=== PATIENT | female | born 1990 | race Caucasian/White ===

== ENCOUNTER 2017-05-25 17:23 | Emergency (ER) | payer OTHER ==
[2017-05-25 17:36] VITALS: BP 90/52
--- NOTE | 2017-05-25 17:38 | UC ---
Ear Complaint HPI - HPI Summary HPI Summary: 27 year old female presents with complains of bilateral ear pain and cerumen impaction. - History of Current Complaint Chief Complaint: UCUpperExtremity Stated Complaint: EAR ACHE Time Seen by Provider: 05/25/17 17:37 Hx Obtained From: Patient Hx Last Menstrual Period: NOW Onset/Duration: Sudden Onset Severity Initially: Moderate Severity Currently: Moderate Pain Scale Used: 0-10 Numeric - 5 - Allergies/Home Medications Allergies/Adverse Reactions: Allergies Allergy/AdvReac Type Severity Reaction Status Date / Time Sulfa Antibiotics Allergy Rash Verified 05/25/17 17:36 Home Medications: Home Medications Control Pill* 1 tab PO DAILY 05/25/17 [History] Multiple Vitamins W/ Minerals [Multivitamin Adults] 1 tab PO DAILY 05/25/17 [ History Confirmed 05/25/17] Otc Allergy Med* 1 tab PO DAILY 05/25/17 [History Confirmed 05/25/17] PMH/Surg Hx/FS Hx/Imm Hx Previously Healthy: Yes - Surgical History Surgical History: Yes Surgery Procedure, Year, and Place: urethra tube cyst-2016 - Family History Known Family History: Positive: Hypertension, Diabetes, Respiratory Disease, Seizure Disorder - Social History Alcohol Use: None Substance Use Type: Marijuana Substance Use Comment - Amount & Last Used: marijuana today Smoking Status (MU): Former Smoker Type: Cigarettes Length of Time of Smoking/Using Tobacco: 7 years Have You Smoked in the Last Year: No When Did the Patient Quit Smoking/Using Tobacco: 6 MOS. Review of Systems Constitutional: Negative Skin: Negative Eyes: Negative ENT: Ear Ache Respiratory: Negative Cardiovascular: Negative Gastrointestinal: Negative Genitourinary: Negative Motor: Negative Neurovascular: Negative Musculoskeletal: Negative Neurological: Negative Psychological: Negative All Other Systems Reviewed And Are Negative: Yes Physical Exam Triage Information Reviewed: Yes Vital Signs: Initial Vital Signs Temp 36.6 C 05/25/17 17:32 Pulse 66 05/25/17 17:32 Resp 16 05/25/17 17:32 BP 90/52 05/25/17 17:32 Pulse Ox 99 05/25/17 17:32 Vital Signs Reviewed: Yes Eye Exam: Normal ENT: Positive: Other: - bilateral cerumen impaction ear pain Dental Exam: Normal Neck exam: Normal Neck: Positive: 1 Respiratory Exam: Normal Cardiovascular Exam: Normal Abdominal Exam: Normal Musculoskeletal Exam: Normal Neurological Exam: Normal Psychological Exam: Normal Skin Exam: Normal Ear Complaint Course/Dx - Differential Dx/Diagnosis Provider Diagnoses: bilateral cerumen impaction. ear pain Discharge - Discharge Plan Condition: Stable Disposition: HOME Prescriptions: Methylprednisolone [Medrol Dosepak 4 MG*] 4 mg PO .SEE ESTEPHANIA INSTRUCTION #21 tab Neomyc/Polym/HC 1% OTIC SUSP* [Cortisporin Otic Susp 1%*] 4 drop BOTH EARS QID # 1 btl Patient Education Materials: Earache (ED) Referrals: Laxmi Mcadams NP [Primary Care Provider] -
== END 2017-05-25 18:14 | disposition home or self-care (01) ==
LOC: UCEAST 17:23
DX: H61.23 Impacted cerumen, bilateral (principal); H92.03 Otalgia, bilateral; Z79.3 Long term (current) use of hormonal contraceptives; Z88.2 Allergy status to sulfonamides; F12.90 Cannabis use, unspecified, uncomplicated; Z87.891 Personal history of nicotine dependence
CPT/HCPCS: 99213; G0463

== ENCOUNTER 2017-10-06 12:24 | Emergency (ER) | payer OTHER ==
[2017-10-06 12:40] VITALS: BP 106/67
--- NOTE | 2017-10-06 12:59 | UC ---
Abdominal Pain Female HPI - HPI Summary HPI Summary: right lower abdominal pain x 1 day no radiation of the pain , pain is sharp, worse with movement, better with rest, no fever, no chills, no n/v/d/c , + dysuria - History of Current Complaint Chief Complaint: UCAbdominalPain Stated Complaint: ABD PAIN Time Seen by Provider: 10/06/17 12:49 Hx Obtained From: Patient Hx Last Menstrual Period: 27 dyas ago ?: No Onset/Duration: Gradual Onset, Lasting Days - 1, Still Present Timing: Constant Severity Initially: Moderate Severity Currently: Moderate Pain Intensity: 4 Location: Discrete At: RLQ Radiates: No Character: Sharp Aggravating Factor(s): Movement Alleviating Factor(s): Nothing Associated Signs and Symptoms: Negative: Diaphoresis, Fever, Cough, Chest Pain, Dizzy, Back Pain, Constipation, Blood in Stool, Urinary Symptoms, Decreased Appetite, Vaginal Bleeding, Vaginal Discharge, Nausea, Vomiting, Diarrhea Allergies/Adverse Reactions: Allergies Allergy/AdvReac Type Severity Reaction Status Date / Time Sulfa (Sulfonamide Allergy Rash Verified 10/06/17 12:42 Antibiotics) Home Medications: Home Medications Multivitamin [Daily Multiple Vitamins] 1 tab PO DAILY 10/06/17 [History Confirmed 10/06/17] Sertraline* [Zoloft*] 50 mg PO DAILY 10/06/17 [History Confirmed 10/06/17] PMH/Surg Hx/FS Hx/Imm Hx Previously Healthy: Yes - Surgical History Surgical History: Yes Surgery Procedure, Year, and Place: urethra tube cyst-2016 - Family History Known Family History: Positive: Hypertension, Diabetes, Respiratory Disease, Seizure Disorder - Social History Alcohol Use: Weekly Alcohol Amount: 1-2 Substance Use Type: Marijuana Substance Use Comment - Amount & Last Used: marijuana today Smoking Status (MU): Former Smoker Type: Cigarettes Length of Time of Smoking/Using Tobacco: 7 years Have You Smoked in the Last Year: No When Did the Patient Quit Smoking/Using Tobacco: 6 MOS. Review of Systems Constitutional: Negative Skin: Negative Eyes: Negative ENT: Negative Respiratory: Negative Cardiovascular: Negative Gastrointestinal: Abdominal Pain Genitourinary: Negative Is Patient Immunocompromised?: No All Other Systems Reviewed And Are Negative: Yes Physical Exam Triage Information Reviewed: Yes Appearance: Well-Appearing, No Pain Distress, Well-Nourished Vital Signs: Initial Vital Signs Temp 99.1 F 10/06/17 12:34 Pulse 71 10/06/17 12:34 Resp 18 10/06/17 12:34 BP 106/67 10/06/17 12:34 Pulse Ox 99 10/06/17 12:34 Vital Signs Reviewed: Yes Eyes: Positive: Conjunctiva Clear ENT: Positive: Normal ENT inspection, Hearing grossly normal, Pharynx normal, Pharyngeal erythema Neck: Positive: Supple, Nontender, No Lymphadenopathy Respiratory: Positive: Chest non-tender, Lungs clear, Normal breath sounds, No respiratory distress Cardiovascular: Positive: RRR, No Murmur, Pulses Normal Abdomen Description: Positive: Soft, Guarding, Other: - RLQ TENDERNESS. Negative: CVA Tenderness (R), CVA Tenderness (L), Distended Bowel Sounds: Positive: Present Musculoskeletal Exam: Normal Skin Exam: Normal Abd Pain Female Course/Dx - Course Course Of Treatment: CONCERN ABOUT ACUTE APPENDICITIS. WILL HAVE THE PT. GO TO [facility] ED - Differential Dx/Diagnosis Provider Diagnoses: RLQ ABDOMINAL PAIN Discharge - Discharge Plan Condition: Good Disposition: TRANS [facility] FAC Patient Education Materials: Acute Abdominal Pain (ED) Referrals: Laxmi Mcadams NP [Primary Care Provider] - Additional Instructions: concern about acute appendicitis please go to [facility] ED for eval and tx
== END 2017-10-06 13:01 | disposition short-term general hospital (02) ==
LOC: UCCORT 12:24
DX: R10.31 Right lower quadrant pain (principal); Z87.891 Personal history of nicotine dependence
CPT/HCPCS: 81003; 99212; G0463

== ENCOUNTER 2017-10-06 23:32 | Emergency (ER) | payer OTHER ==
[2017-10-06 23:39] VITALS: BP 118/70
== END 2017-10-07 01:05 | disposition left against medical advice (07) ==
LOC: ED 23:32
DX: R10.9 Unspecified abdominal pain (principal); Z53.21 Procedure and treatment not carried out due to patient leaving prior to being seen by health care provider

== ENCOUNTER 2018-10-15 16:57 | Emergency (ER) | payer OTHER ==
[2018-10-15 17:30] VITALS: BP 101/57
--- NOTE | 2018-10-15 18:44 | UC ---
General HPI - HPI Summary HPI Summary: RN notes - Sore throat starting Thursday; Thursday night started with post nasal drip; worsensing throat pain. Denies any fever. - History of Current Complaint Chief Complaint: UCRespiratory Stated Complaint: SINUS CONGESTION, COUGH, AND EAR ACHE Time Seen by Provider: 10/15/18 18:43 Hx Obtained From: Patient Hx Last Menstrual Period: 10/08/2018 Pain Intensity: 8 - Allergy/Home Medications Allergies/Adverse Reactions: Allergies Allergy/AdvReac Type Severity Reaction Status Date / Time Sulfa (Sulfonamide Allergy Rash Verified 10/15/18 17:25 Antibiotics) PMH/Surg Hx/FS Hx/Imm Hx - Surgical History Surgical History: Yes Surgery Procedure, Year, and Place: urethra tube cyst-2015 - Family History Known Family History: Positive: Hypertension, Diabetes, Respiratory Disease, Seizure Disorder - Social History Alcohol Use: Weekly Alcohol Amount: 1-2 Substance Use Type: Marijuana Substance Use Comment - Amount & Last Used: marijuana today Smoking Status (MU): Former Smoker Type: Cigarettes Length of Time of Smoking/Using Tobacco: 7 years Have You Smoked in the Last Year: No When Did the Patient Quit Smoking/Using Tobacco: 6 MOS. Physical Exam Vital Signs: Initial Vital Signs Temp 98.3 F 10/15/18 17:26 Pulse 92 10/15/18 17:26 Resp 18 10/15/18 17:26 BP 101/57 10/15/18 17:26 Pulse Ox 100 10/15/18 17:26 Course/Dx - Course Course Of Treatment: STrep negative neg. Will check mono. D/w pt. She is concerned about recently feeling very weak. Has been taking iron suppls. Will check cbc as well. Meanwhile, pt wishes to start azithromycin re sinus / uri issues. F/u PCP encouraged. Questions as posed answered to the best of my ability. Declines work note. - Diagnoses Provider Diagnosis: Pharyngitis Discharge - Sign-Out/Discharge Documenting (check all that apply): Patient Departure All imaging exams completed and their final reports reviewed: No Studies - Discharge Plan Condition: Stable Disposition: HOME Prescriptions: Azithromyxin ESTEPHANIA (NF) [Z-Estephania (Zithromax) 250 mg tabs #6] 2 tab PO .TODAY, THEN 1 DAILY #6 tab Patient Education Materials: Pharyngitis (ED), Weakness (ED) Referrals: Laxmi Mcadams NP [Primary Care Provider] - Additional Instructions: Follow up with your primary care provider next week. Call early next wekk to let her know how you are doing. Seek medical attention in the meantime for any worse or new problems. Blood tests today: CBC Monospot (possible EBV testing) CRP/ ESR Use back up control method during the cycle(s) in which you are taking the antibiotic. - Billing Disposition and Condition Condition: STABLE Disposition: Home
[2018-10-16 10:05] LABS: ABS Basophils 0.1 10^3/ul (0-0.2); ABS Eosinophils 0.1 10^3/ul (0-0.6); ABS Lymphocytes 1.7 10^3/ul (1.0-4.8); ABS Monocytes 0.4 10^3/ul (0-0.8); ABS Neutrophils 4.2 10^3/ul (1.5-7.7); ABS Nucleated RBC 0 10^3/ul; Eosinophil % 1.6 %; Hematocrit 42 % (33-41); Hemoglobin 14.1 g/dL (12.0-16.0); Lymphocyte % 26.9 %; Mean Corpuscular HGB Conc 34 g/dL (31-36); Mean Corpuscular Hemoglobin 30 pg (27-31); Mean Corpuscular Volume 89 fL (80-97); Nucleated Red Blood Cells % 0.2; Platelet Count 214 10^3/uL (150-450); Red Blood Count 4.73 10^6 /uL (3.70-4.87); Red Cell Distribution Width 13 % (10.5-15); White Blood Count 6.5 10^3/uL (3.5-10.8)
--- NOTE | 2018-10-16 15:25 | UC ---
- Progress Note Progress Note: 10/16/2018 CBC:WNL , ESR still pending. Monospot: negative CRP: 3.56 WNL. No change Mary Haskins PA-C Course/Dx - Diagnoses Provider Diagnoses: Pharyngitis Discharge - Sign-Out/Discharge Documenting (check all that apply): Patient Departure - D/C home All imaging exams completed and their final reports reviewed: No Studies - Discharge Plan Condition: Stable Disposition: HOME Prescriptions: Azithromyxin ESTEPHANIA (NF) [Z-Estephania (Zithromax) 250 mg tabs #6] 2 tab PO .TODAY, THEN 1 DAILY #6 tab Patient Education Materials: Pharyngitis (ED), Weakness (ED) Referrals: Laxmi Mcadams NP [Primary Care Provider] - Additional Instructions: Follow up with your primary care provider next week. Call early next wekk to let her know how you are doing. Seek medical attention in the meantime for any worse or new problems. Blood tests today: CBC Monospot (possible EBV testing) CRP/ ESR Use back up control method during the cycle(s) in which you are taking the antibiotic. - Billing Disposition and Condition Condition: STABLE Disposition: Home
[2018-10-16 23:04] LABS: Erythrocyte Sed Rate 5 mm/Hr (0-20)
[2018-10-18 14:59] LABS: EBV Capsid Ag IgG Ab Positive (Negative); EBV Capsid Ag IgM Ab Negative (Negative); Epstein-Barr Nuclear Antigen Positive (Negative)
== END 2018-10-15 19:45 | disposition home or self-care (01) ==
LOC: UCEAST 16:57
DX: J02.9 Acute pharyngitis, unspecified (principal); Z88.2 Allergy status to sulfonamides; Z87.891 Personal history of nicotine dependence
CPT/HCPCS: 36415; 85025; 85652; 86140; 86308; 86664; 86665; 87651; 99212; G0463

== ENCOUNTER 2019-04-03 14:20 | Emergency (ER) | payer OTHER ==
--- OUTSIDE RECORDS SUMMARY | 2019-04-03 14:26 | XMS REPORT | Continuity of Care Document ---
:1990 External Reference #:[id number] Author Name Aayush Porras, Address [address] [place] [id number] Care Team Providers Name Role Phone Laxmi Mcadams FNP Care Team Information Associate Director Of Development [phone] Problems Description No Information Available Social History Type Date Description Comments Sex Unknown Tobacco Use Start: Unknown End: Unknown Patient is a former smoker Smoking Status Reviewed: 12/06/18 Patient is a former smoker Allergies, Adverse Reactions, Alerts Active Allergies Reaction Severity Comments Date Sulfa 12/06/2018 Medications Active Medications SIG Qnty Indications Ordering Provider Date Sofosbuvir-Velpatasvi 1 tablet PO 28tabs Aayush PorrasDO 01/05/2019 r daily 400-100mg Tablets Lillow Take 1 Tablet By Unknown 0.15-30mg-mcg Mouth Every Day Tablets Immunizations Description No Information Available Vital Signs Date Vital Result Comment 12/06/2018 1:39pm Height 64 inches 5'4" Weight 130.00 lb BP Systolic 119 mmHg BP Diastolic 73 mmHg Heart Rate 79 /min BMI (Body Mass Index) 22.3 kg/m2 Results Test Date Facility Test Result H/L Range Note Liver Function Panel 02/07/2019 [facility] [place] Protein 8.1 g/dL Normal 6.4- 8.9 Albumin 5.1 g/dL Normal 3.2-5.2 Globulin 3.0 g/dL Normal 2-4 Albumin/Globulin Ratio 1.7 Normal 1-3 Total Bilirubin 0.50 mg/dL Normal 0.2-1.0 Direct Bilirubin 0.10 mg/dL Normal 0.03-0.18 Indirect Bilirubin 0.4 mg/dL Normal 0.3-1.0 Alkaline Phosphatase 52 U/L Normal 34-104 Alt 14 U/L Normal 7-52 Ast 17 U/L Normal 13-39 Laboratory test 02/07/2019 [facility] Hepatitis C Rna Undetected IU/mL Undetected 1 finding Quant Comp Metabolic 12/06/2018 [facility] Sodium 138 mmol/L Normal 135-145 Panel Potassium 4.1 mmol/L Normal 3.5-5.0 Chloride 104 mmol/L Normal 101-111 Co2 Carbon Dioxide 25 mmol/L Normal 22-32 Anion Gap 9 mmol/L Normal 2-11 Glucose 102 mg/dL High 70-100 Blood Urea Nitrogen 16 mg/dL Normal 6-24 Creatinine 0.64 mg/dL Normal 0.51-0.95 BUN/Creatinine Ratio 25.0 High 8-20 Calcium 9.7 mg/dL Normal 8.6-10.3 Total Protein 7.4 g/dL Normal 6.4-8.9 Albumin 4.6 g/dL Normal 3.2-5.2 Globulin 2.8 g/dL Normal 2-4 Albumin/Globulin Ratio 1.6 Normal 1-3 Total Bilirubin 0.50 mg/dL Normal 0.2-1.0 Alkaline Phosphatase 50 U/L Normal 34-104 Alt 79 U/L High 7-52 Ast 48 U/L High 13-39 Egfr Non- 112.2 >60 Egfr 135.7 >60 2 Laboratory test 12/06/2018 [facility] HCV Genotype 1a Abnormal Undetected 3 finding Resolution, S Hepatitis B Vasquez AB 12/06/2018 [facility] Hepatitis B Surface Immune Immune Titer AB Hep B Surf AB Level 62.17 mIU/mL >12 Fibro Test-Actitest, Serum 12/06/2018 [facility] FibroTest Score 0.04 FibroTest Stage F0 FibroTest Interpretation no fibrosis 4 ActiTest Score 0.44 ActiTest Grade A1-A2 ActiTest Interpretation minimal activity 5 FibroTest-ActiTest Comment See Comment 6 [employer] Serial Number [id number] Apolipoprotein A1, S 189 mg/dL >=140 Tkloe-1-Pnaelywtockyc, S 188 mg/dL 100 - 280 Haptoglobin, S 134 mg/dL 30 - 200 Alanine Aminotransferase (Alt) 93 U/L Abnormal 7-45 Gamma Glutamyltransferase GGT 25 U/L 5 - 36 Bilirubin, Total, S 0.4 mg/dL <=1.2 7 Drug Abuse W/Confirm, Ur 12/06/2018 [facility] Urine Alcohol Negative mg/dL Cutoff: 10 Urine Amphetamine Negative ng/mL 8 Urine Barbiturates Negative ng/mL 9 Urine Benzodiazepines Negative ng/mL 10 Urine Cocaine Negative ng/mL 11 Urine Methadone Negative ng/mL Negative 12 Urine Opiates Negative ng/mL Negative 13 Urine Phencyclidine Negative ng/mL Cutoff: 25 Urine Tetrahydrocannabinol Presumptive Posi <SEE NOTE> ng/mL Abnormal Cutoff : 50 14 THC Confirmation Urine 12/06/2018 [facility] Urine Carboxy THC Confirm >500.0 ng/ mL 15 Urine THC Interpretation Positive. 16 CBC W/Auto 12/06/2018 [facility] 5.5 3/UL 4.8- 10.8 Differential(!) [address] [facility] [place] [address] Count Ser [phone] Auto CNT RBC Red Blood Count 4.34 X106/UL 4.20-6.20 Hemoglobin Blood 12.7 g/dL 12.0-18.0 Hematocrit 40.9 % 35-52 MCV (Corpuscular Volume) 92.3 FL 79-97 MCH (Corpuscular Hemoglobin) 30.0 pg 27-31 MCHC (Corpuscular Hemog Conc) 32.6 g/dL 32.0-36.0 RDW 13.5 % 10.5-15.0 Platelet Count Blood Auto CNT 208 X103/UL 150-450 MPV 8.1 FL 7.4-10.4 Lymph% 37.3 % 20.0-45.0 Charles% 7.3 % 1.0-9.0 Neutrophil % 55.4 % 38.0-83.0 Absolute Lymphocytes 2.1 X103/UL 1.0-4.8 Absolute Monocytes 0.4 X103/UL 0.0-0.8 Absolute Neutrophils 3.0 X103/UL 1.5-7.7 Laboratory test finding 12/06/2018 [facility] Inr(!) [address] [place] [id number] [phone] 1 Result in log IU/mL is Undetected. ADDITIONAL INFORMATION The quantification range of this assay is 15 to 100,000,000 IU/mL (1.18 log to 8.00 log IU/mL). Testing was performed using the spencer HCV test ([employer] with the spencer Access Mobile0 System. Test Performed by: [facility] - [address] [address] 2 Because ethnic data is not always readily available, this report includes an eGFR for both -Americans and non- Americans. The National Kidney Disease Education Program (NKDEP) does not endorse the use of the MDRD equation for patients that are not between the ages of 18 and 70, are , have extremes of body size, muscle mass, or nutritional status, or are non- or non-. According to the National Kidney Foundation, irrespective of diagnosis, the stage of the disease is based on the level of kidney function: Stage Description GFR(mL/min/1.73 m(2)) 1 Kidney damage with normal or decreased GFR 90 2 Kidney damage with mild decrease in GFR 60-89 3 Moderate decrease in GFR 30-59 4 Severe decrease in GFR 15-29 5 Kidney failure <15 (or dialysis) 3 Result is the definitive HCV genotype. ADDITIONAL INFORMATION This test was performed using a combination of the Gao RealTime HCV Genotype II assay and the HCV Genotype Plus assay ([employer] [place], [place]). This test was developed and its performance characteristics determined by [facility] in a manner consistent with CLIA requirements. This test has not been cleared or approved by the U.S. Food and Drug Administration. Test Performed by: [facility] - [address] [address] 4 FibroTest estimates liver fibrosis FibroTest Score Stage Interpretation 0.00-0.21 F0 no fibrosis 0.21-0.27 F0-F1 no fibrosis 0.27-0.31 F1 minimal fibrosis 0.31-0.48 F1-F2 minimal fibrosis 0.48-0.58 F2 moderate fibrosis 0.58-0.72 F3 advanced fibrosis 0.72-0.74 F3-F4 advanced fibrosis 0.74-1.00 F4 severe fibrosis (Cirrhosis) 5 minimal activity ActiTest estimates necroinflammatory activity ActiTest Score Grade Interpretation 0.00-0.17 A0 no activity 0.17-0.29 A0-A1 no activity 0.29-0.36 A1 minimal activity 0.36-0.52 A1-A2 minimal activity 0.52-0.60 A2 significant activity 0.60-0.62 A2-A3 significant activity 0.62-1.00 A3 severe activity 6 The reliability of results is dependent on compliance with the preanalytical and analytical conditions recommended by [employer]. The tests have to be deferred for: acute hemolysis, acute hepatitis, acute inflammation, extra hepatic cholestasis. The advice of a specialist should be sought for interpretation in chronic hemolysis and Gilbert's syndrome. The test interpretation is not validated in liver transplant patients. Isolated extreme values of one of the components should lead to caution in interpreting the results. In case of discordance between a biopsy result and a test, it is recommended to seek advice of a specialist. The causes of these discordances could be due to a flaw of the test or to a flaw in the biopsy: i.e. a liver biopsy has a 33% variability rate for one fibrosis stage. FibroTest is interpretable for chronic hepatitis B and C, alcoholic and non alcoholic steatosis. ActiTest is interpretable for chronic hepatitis B and C. ADDITIONAL INFORMATION This test was developed and its performance characteristics determined by [facility] in a manner consistent with CLIA requirements. This test has not been cleared or approved by the U.S. Food and Drug Administration. 7 Test Performed by: [facility] [address] [place] [address] Test Performed by: [facility] [address] [place] [address] 8 REFERENCE VALUE Cutoff: 500 9 REFERENCE VALUE Cutoff: 200 10 REFERENCE VALUE Cutoff: 100 11 REFERENCE VALUE Cutoff: 150 12 REFERENCE VALUE Cutoff: 300 13 REFERENCE VALUE Cutoff: 300 14 Presumptive Positive Drug confirmation to follow. Presumptive Positive means that the screening method is positive, but the test needs to be run by a confirmatory method before being finalized. ADDITIONAL INFORMATION This report is intended for use in clinical monitoring or management of patients. It is not intended for use in employment-related testing. This test has been modified from the clock repairer's instructions. Its performance characteristics were determined by [facility] in a manner consistent with CLIA requirements. This test has not been cleared or approved by the U.S. Food and Drug Administration. Test Performed by: [facility] [address] [place] [address] 15 REFERENCE VALUE Cutoff: 3.0 16 ADDITIONAL INFORMATION This report is intended for use in clinical monitoring and management of patients. It is not intended for use in employment-related testing. This test was developed and its performance characteristics determined by [facility] in a manner consistent with CLIA requirements. This test has not been cleared or approved by the U.S. Food and Drug Administration. 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
[2019-04-03 14:36] VITALS: BP 122/67
--- NOTE | 2019-04-03 14:47 | UC ---
Neck Pain HPI - HPI Summary HPI Summary: Patient was moving heavy boxes a few days ago, has had pain and swelling along the back of the neck since. there is noted swelling over the c7 T! area, slightly erythemic and patient is stiff. denies any fever or other symptoms. - History of Current Complaint Chief Complaint: UCGeneralIllness Stated Complaint: NECK PAIN Time Seen by Provider: 04/03/19 14:37 Hx Obtained From: Patient Hx Last Menstrual Period: 04/02/19 ?: No Onset/Duration Of Injury/Symptoms: Days Mechanism Of Injury: No Known Trauma Timing: Constant Onset/Duration: Sudden Onset, Lasting Days Severity: Severe Pain Intensity: 8 Character: Stiff, Spasmotic Aggravating Factors: Movement Alleviating Factors: Heat Associated Signs & Symptoms: Positive: Swelling, Redness - Allergies/Home Medications Allergies/Adverse Reactions: Allergies Allergy/AdvReac Type Severity Reaction Status Date / Time Sulfa (Sulfonamide Allergy Rash Verified 04/03/19 14:36 Antibiotics) Home Medications: Home Medications Glecaprevir/Pibrentasvir [Mavyret 100-40 mg Tablet] 1 tab PO DAILY 04/03/19 [ History Confirmed 04/03/19] PMH/Surg Hx/FS Hx/Imm Hx Previously Healthy: Yes - Surgical History Surgical History: Yes Surgery Procedure, Year, and Place: urethra tube cyst-2015 - Family History Known Family History: Positive: Hypertension, Diabetes, Respiratory Disease, Seizure Disorder - Social History Alcohol Use: Weekly Alcohol Amount: 1-2 Substance Use Type: Marijuana Substance Use Comment - Amount & Last Used: marijuana daily Smoking Status (MU): Former Smoker Type: Cigarettes Length of Time of Smoking/Using Tobacco: 7 years Have You Smoked in the Last Year: No When Did the Patient Quit Smoking/Using Tobacco: 2 years ago Review of Systems All Other Systems Reviewed And Are Negative: Yes Musculoskeletal: Positive: Arthralgia, Decreased ROM, Edema, Myalgia Neurological: Positive: Headache Is Patient Immunocompromised?: No Physical Exam Vital Signs: Initial Vital Signs Temp 98.4 F 04/03/19 14:29 Pulse 60 04/03/19 14:29 Resp 16 04/03/19 14:29 BP 122/67 04/03/19 14:29 Pulse Ox 100 04/03/19 14:29 Neck Pain Course/Dx - Course Course Of Treatment: hx obtained, exam performed ,meds reviewed, xray obtained no bony issue noted, treated for muscle spasm. - Differential Dx/Diagnosis Differential Dx/HQI/PQRI: Arthritis, Cervical Fracture, Sprain, Strain Provider Diagnosis: Trapezius muscle spasm Discharge ED - Sign-Out/Discharge Documenting (check all that apply): Patient Departure All imaging exams completed and their final reports reviewed: No Studies - Discharge Plan Condition: Stable Disposition: HOME Prescriptions: Cyclobenzaprine TAB* [Flexeril 10 MG TAB*] 10 mg PO BID PRN #10 tab PRN Reason: Spasms Referrals: Laxmi Mcadams, F[employer] F[employer]ER [Primary Care Provider] - Additional Instructions: 1. heat and stretch the neck 2. Use the muscle relaxors as prescribed. 3. Ibuprofen 400 - 600 mg every 4-6 hours for inflammation and pain. 4. If not improving over the next 5-7 days follow up with Laxmi Mcadams. - Billing Disposition and Condition Condition: STABLE Disposition: Home
--- NOTE | 2019-04-04 09:00 | UC ---
Course/Dx - Diagnoses Provider Diagnoses: Trapezius muscle spasm Discharge ED - Sign-Out/Discharge Documenting (check all that apply): Post-Discharge Follow Up All imaging exams completed and their final reports reviewed: Yes - Discharge Plan Condition: Stable Disposition: HOME Prescriptions: Cyclobenzaprine TAB* [Flexeril 10 MG TAB*] 10 mg PO BID PRN #10 tab PRN Reason: Spasms Patient Education Materials: Spasmodic Torticollis (ED) Referrals: Laxmi Mcadams, [employer] PROFESSOR [Primary Care Provider] - Additional Instructions: 1. heat and stretch the neck 2. Use the muscle relaxors as prescribed. 3. Ibuprofen 400 - 600 mg every 4-6 hours for inflammation and pain. 4. If not improving over the next 5-7 days follow up with Laxmi Mcadams. - Billing Disposition and Condition Condition: STABLE Disposition: Home
== END 2019-04-03 15:28 | disposition home or self-care (01) ==
LOC: UCEAST 14:20
DX: M62.830 Muscle spasm of back (principal); Z87.891 Personal history of nicotine dependence
CPT/HCPCS: 72040; 99212; G0463

== ENCOUNTER 2019-05-04 07:12 | Emergency (ER) | payer OTHER ==
--- OUTSIDE RECORDS SUMMARY | 2019-05-04 07:22 | XMS REPORT | Continuity of Care Document ---
:1990 External Reference #:[id number] Author Name Laxmi Mcadams, N.P. Address [address] [place] [id number] Problems Description No Information Available Social History Type Date Description Comments Sex Unknown Tobacco Use Start: Unknown Never Smoked Cigarettes Recreational Drug Use Current Drug User marijuana Tobacco Use Start: Unknown Patient has never smoked Smoking Status Reviewed: 10/22/18 Patient has never smoked Allergies, Adverse Reactions, Alerts Active Allergies Reaction Severity Comments Date Sulfa Antibiotics 06/19/2015 Inactive Allergies NKDA 12/31/2007 Medications Active Medications SIG Qnty Indications Ordering Provider Date Lillow Take 1 Tablet By 28tabs Laxmi Mcadams, 09/13/2018 0.15-30mg-mcg Mouth Every Day N.P. Tablets Valacyclovir HCL Take 2 Tablets 10tabs Laxmi Mcadams, 05/12/2017 1gm By Mouth Twice A N.P. Tablets Day For 1 Day Multivitamins 1 po qd 30tabs Laxmi Mcadams, 03/31/2013 Tablets N.P. History Medications Cipro 1 by mouth twice 6tabs Laxmi Mcadams, 12/21/2018 - 500mg Tablets a day x 3 days N.P. 05/03/2019 Immunizations CPT Code Status Date Vaccine Lot # [id number] Given 11/07/2010 Menactra/Menveo Meningococcal Vaccine [id number] Given 02/10/2008 HPV Vaccine (Gardasil) 3 Dose Schedule [id number] Given 10/12/2007 HPV Vaccine (Gardasil) 3 Dose Schedule [id number] Given 08/10/2007 HPV Vaccine (Gardasil) 3 Dose Schedule [id number] Refused 08/05/2018 Influenza Vac, Quadrivalent, Split, 0.5mL Dosage, Im Use Vital Signs Date Vital Result Comment 05/03/2019 11:23am Body Temperature 98.1 F Weight 128.00 lb Heart Rate 96 /min BP Systolic 114 mmHg BP Diastolic 64 mmHg Height 65 inches 5'5" O2 % BldC Oximetry 97 % BMI (Body Mass Index) 21.3 kg/m2 12/21/2018 11:42am Body Temperature 98.1 F Weight 132.00 lb Heart Rate 83 /min BP Systolic 118 mmHg BP Diastolic 80 mmHg O2 % BldC Oximetry 98 % Results Test Date Facility Test Result H/L Range Note Laboratory test 12/21/2018 [facility] Urine Culture Microbiology res Abnormal 1 finding <SEE NOTE> 1 Microbiology results SOURCE Clean Catch Midstream COLONY COUNT 75,000 CFU/ML PRELIMINARY RESULT Gram Negative Abdias. ID & Sensitivity to Follow. 12/22/2018 2:54 PM FINAL RESULT Escherichia coli (Isolate 1) Sensitivity Analysis Isolate 1 --------- AMIKACIN <=16 S AMOXICILLIN/CLAVULANATE <=8/4 S AMPICILLIN <=8 S AMPICILLIN/SULBACTAM <=8/4 S CEFAZOLIN <=2 S CEFEPIME <=8 S CEFOTAXIME <=2 S CEFTRIAXONE <=1 S CEFUROXIME <=4 S CIPROFLOXACIN <=1 S ERTAPENEM <=0.5 S GENTAMYCIN <=2 S IMIPENEM <=1 S LEVOFLOXACIN <=2 S NITROFURANTOIN <=32 S PIPERACILLIN/TAZOBACTAM <=16 S TETRACYCLINE <=4 S TOBRAMYCIN <=4 S TRIMETHOPRIM/SULFAMETHOXAZ <=2/38 S S=Sensitive;I=Indeterminate;R=Resistant Procedures Description No Information Available Medical Devices Description No Information Available Encounters Type Date Location Provider Dx Diagnosis Office Visit 12/21/2018 11:30a Laxmi Chamberlain, N.P. R30.0 Dysuria Assessments Date Code Description Provider 05/03/2019 Z02.89 Encounter for other administrative Laxmi Mcadams, N.P. examinations 12/21/2018 R30.0 Dysuria Laxmi Mcadams, N.P. 12/21/2018 R82.90 Unspecified abnormal findings in urine [facility] Plan of Treatment 05/03/2019 - Laxmi Mcadams, N.P.Z02.89 Encounter for other administrative examinationsComments:well female cleared for employment she will receive PPD from workplace Functional Status Description No Information Available Mental Status Description No Information Available Referrals Description No Information Available
[2019-05-04 07:29] VITALS: BP 119/70
--- NOTE | 2019-05-04 08:04 | ED ---
Throat Pain/Nasal Congestion - HPI Summary HPI Summary: 29 yr old female with three day of yellow drainage right eye, irritation, and morning eyelid swelling. Eyes get shut by the crusting overnight. No contact lens use. Symptoms are moderate. - History of Current Complaint Chief Complaint: UCEye Time Seen by Provider: 05/04/19 07:49 - Allergies/Home Medications Allergies/Adverse Reactions: Allergies Allergy/AdvReac Type Severity Reaction Status Date / Time Sulfa (Sulfonamide Allergy Rash Verified 05/04/19 07:25 Antibiotics) Home Medications: Home Medications Ibuprofen TAB* [Advil TAB*] 200 mg PO Q6H PRN 05/04/19 [History Confirmed ] PMH/Surg Hx/FS Hx/Imm Hx Endocrine/Hematology History: Denies: Hx Diabetes, Hx Thyroid Disease Cardiovascular History: Denies: Hx Hypertension Respiratory History: Denies: Hx Asthma, Hx Chronic Obstructive Pulmonary Disease (COPD) GI History: Denies: Hx Ulcer - Surgical History Surgery Procedure, Year, and Place: urethra tube cyst-2016 Infectious Disease History: No Infectious Disease History: Denies: Hx Clostridium Difficile, Hx Hepatitis, Hx Human Immunodeficiency Virus (HIV), Hx of Known/Suspected MRSA, Hx Shingles, Hx Tuberculosis, Hx Known/ Suspected VRE, Hx Known/Suspected VRSA, History Other Infectious Disease, Traveled Outside the [place] in Last 30 Days - Family History Known Family History: Positive: Hypertension, Diabetes, Respiratory Disease, Seizure Disorder - Social History Alcohol Use: Weekly Alcohol Amount: 1-2 Substance Use Type: Reports: Marijuana Substance Use Comment - Amount & Last Used: marijuana daily Smoking Status (MU): Former Smoker Type: Cigarettes Length of Time of Smoking/Using Tobacco: 7 years Have You Smoked in the Last Year: No Review of Systems Constitutional: Negative Positive: Drainage, Erythema All Other Systems Reviewed And Are Negative: Yes Physical Exam Triage Information Reviewed: Yes Vital Signs On Initial Exam: Initial Vitals Temp Pulse Resp BP Pulse Ox 98.2 F 91 15 119/70 100 05/04/19 07:22 05/04/19 07:22 05/04/19 07:22 05/04/19 07:22 05/04/19 07:22 Vital Signs Reviewed: Yes Appearance: Positive: Well-Appearing, No Pain Distress Skin: Positive: Warm, Skin Color Reflects Adequate Perfusion Head/Face: Positive: Normal Head/Face Inspection Eyes: Positive: EOMI, BILLIE, Conjunctiva Inflammed - right more than left, Discharge - right more than left. ENT: Positive: Normal ENT inspection, Pharynx normal, Pharyngeal erythema Neck: Positive: Nontender Respiratory/Lung Sounds: Positive: Clear to Auscultation Cardiovascular: Positive: Pulses are Symmetrical in both Upper and Lower Extremities Abdomen Description: Negative: Distended Musculoskeletal: Positive: Strength/ROM Intact Neurological: Positive: Sensory/Motor Intact, Alert, Oriented to Person Place, Time, CN Intact II-III, Speech Normal Psychiatric: Positive: Normal Diagnostics - Vital Signs Vital Signs Temp Pulse Resp BP Pulse Ox 05/04/19 07:22 98.2 F 91 15 119/70 100 - Laboratory Lab Statement: Any lab studies that have been ordered have been reviewed, and results considered in the medical decision making process. EENT Course/Dx - Course Course Of Treatment: conjunctivitis. Rx cipro eye drops. - Diagnoses Provider Diagnoses: Conjunctivitis Discharge ED - Sign-Out/Discharge Documenting (check all that apply): Patient Departure All imaging exams completed and their final reports reviewed: No Studies - Discharge Plan Condition: Good Disposition: HOME Prescriptions: Ciprofloxacin 0.3% OPTH.JESSE* [Cipro 0.3% Opth*] 2 drop BOTH EYES Q4H #1 btl Patient Education Materials: Conjunctivitis (ED) Forms: *Work Release Referrals: Laxmi Mcadams NP [Primary Care Provider] - 2 Days - Billing Disposition and Condition Condition: GOOD Disposition: Home
== END 2019-05-04 08:18 | disposition home or self-care (01) ==
LOC: UCCORT 07:12
DX: H10.9 Unspecified conjunctivitis (principal); J39.2 Other diseases of pharynx; Z88.2 Allergy status to sulfonamides; Z87.891 Personal history of nicotine dependence
CPT/HCPCS: 99212; G0463

== ENCOUNTER 2022-10-10 12:59 | Inpatient (IN) ==
[2022-10-10] MEDS ORDERED: Lactated Ringers 1000 ml BAG 1,000 ML IV ONE ×2 (13:33→23:18)
[2022-10-10] MEDS ORDERED: miSOPROStol 100 mcg TAB PO ONE (14:10)
[2022-10-10 15:42] LABS: Urine Benzodiazepine Screen None Detected (None Detect); Urine Cannabinoids Screen Presumptive Positive (None Detect); Urine Opiates Screen None Detected (None Detect)
[2022-10-10 18:54] LABS: ABS Lymphocytes 1.6 10^3/ul (1.0-4.8); ABS Monocytes 0.5 10^3/ul (0-0.8); ABS Neutrophils 6.2 10^3/ul (1.5-7.7); Eosinophil % 0.4 %; Hematocrit 34 % (35-47); Hemoglobin 11.3 g/dL (12.0-16.0); Lymphocyte % 19.2 %; Mean Corpuscular HGB Conc 34 g/dL (31-36); Mean Corpuscular Hemoglobin 29 pg (27-31); Mean Corpuscular Volume 87 fL (80-97); Mean Platelet Volume 8.9 fL (7.4-10.4); Platelet Count 192 10^3/uL (150-450); Red Blood Count 3.86 10^6 /uL (3.70-4.87); Red Cell Distribution Width 15 % (10-15); White Blood Count 8.4 10^3/uL (3.5-10.8)
[2022-10-10] MEDS ORDERED: Oxytocin in LR 20,000 MILLI.UNIT/1,000 ML BAG IV SCH (22:00)
[2022-10-10] MEDS ORDERED: Lidocaine 1.5% EPI 1:200,000 30 ML SDV ONE (22:04)
[2022-10-10] MEDS ORDERED: OBEPIDURAL (200 ML) 200 ML EPIDURAL ONE (22:04)
[2022-10-10 22:55] LABS: Urine Appearance Clear; Urine Bilirubin Negative (Negative); Urine Blood 1+ (Negative); Urine Color Straw; Urine Glucose Negative (Negative); Urine Ketones Negative (Negative); Urine Nitrite Negative (Negative); Urine Protein Negative (Negative); Urine Specific Gravity 1.003 (1.002-1.030); Urine Urobilinogen Negative (Negative)
[2022-10-10 23:00] LABS: Urine Bacteria 1+ (Absent); Urine Red Blood Cell Trace(0-2/hpf) (Absent); Urine Squamous Epithelial Cell Present (Absent); Urine White Blood Cell Trace(0-5/hpf) (Absent)
[2022-10-10] MEDS ORDERED: Lactated Ringers 1000 ml BAG 500 ML IV PRN ×2 (23:18)
[2022-10-10] MEDS ORDERED: Phenylephrine 40 mcg/mL 10mL (400mcg) SYRINGE IV PUSH PRN ×2 (23:18)
[2022-10-10] MEDS ORDERED: Sodium Citrate/Citric Acid LIQ 15 ML UDC PO PRN (23:18)
[2022-10-10] MEDS ORDERED: OBEPIDURAL (200 ML) 200 ML EPIDURAL SCH (23:45)
[2022-10-10] MEDS ORDERED: Lactated Ringers 1000 ml BAG 1,000 ML IV SCH (23:45)
[2022-10-11] MEDS ORDERED: fentaNYL 100 mcg/2 ml 50 MCG/ML VIAL ONE (07:21)
[2022-10-11] MEDS ORDERED: Lidocaine 1% w EPI 1:200,000 SDV 30 ML VIAL ONE (07:21)
[2022-10-11] MEDS ORDERED: fentaNYL 100 mcg/2 ml 50 MCG/ML VIAL IV SLOW PU ONE (10:58)
[2022-10-11] MEDS ORDERED: Oxytocin 10 UNITS/ML 1 ML VIAL IM ONE (11:19)
[2022-10-11] MEDS ORDERED: Lactated Ringers 1000 ml BAG 1,000 ML IV SCH (12:00)
[2022-10-11] MEDS: Witch Hazel PAD JAR TOPICAL PRN (12:35)
[2022-10-11] MEDS: Dibucaine 1% OINT 28.35 GM TUBE PR PRN (12:36)
[2022-10-11] MEDS ORDERED: Lidocaine 1% VIAL 10 MG/ML VIAL 30 ML ONE (18:07)
[2022-10-12 07:38] LABS: ABS Basophils 0.1 10^3/ul (0-0.2); ABS Eosinophils 0.1 10^3/ul (0-0.6); ABS Lymphocytes 2.1 10^3/ul (1.0-4.8); ABS Monocytes 0.8 10^3/ul (0-0.8); ABS Neutrophils 7.9 10^3/ul (1.5-7.7); Eosinophil % 0.9 %; Hematocrit 30 % (35-47); Hemoglobin 10.2 g/dL (12.0-16.0); Mean Corpuscular HGB Conc 34 g/dL (31-36); Mean Corpuscular Hemoglobin 30 pg (27-31); Mean Corpuscular Volume 88 fL (80-97); Platelet Count 180 10^3/uL (150-450); Red Blood Count 3.35 10^6 /uL (3.70-4.87); Red Cell Distribution Width 15 % (10-15); White Blood Count 10.9 10^3/uL (3.5-10.8)
[2022-10-13] MEDS: Witch Hazel PAD JAR TOPICAL PRN (08:37)
[2022-10-13] MEDS: Dibucaine 1% OINT 28.35 GM TUBE PR PRN (08:37)
[2022-10-13 12:58] VITALS: BP 131/80
== END 2022-10-13 13:35 | disposition home or self-care (01) | DRG 560 ==
LOC: MCHOBOUT 12:59 → MCHOB 13:47
PROVIDERS: ADMIT Midwife; ATTEND Midwife